=== PATIENT | male | born 1960 | race Caucasian/White ===

== ENCOUNTER 2017-09-20 23:11 | Inpatient (IN) | payer SELFPAY ==
[~2017-09-20] VITALS: Ht 170.2 cm; Wt 99.8 kg
[2017-09-20 23:19] VITALS: BP 119/114
--- NOTE | 2017-09-20 23:24 | NUR ---
PT TAKEN TO BED 10
--- NOTE | 2017-09-20 23:25 | NUR ---
57/M CAME IN W C/O HEMATURIA AND PAINFUKL URINATION X THIS MORNING. PT REPORT HE HAS HX OF UROGENTAL PROBLEM, STATES " THIS HAPPENED 3 YEARS AGO BUT IT WASN'T THIS BAD". 04/03 SUPRAPUBIC TENDERNESS, ABD DISTENDED AND SOFT. DENIES ANY OTHER PAIN AT THIS TIME PMH: HTN
[2017-09-21] MEDS ORDERED: MORPHINE SULFATE 4 MG/ML SYR IVP ONE (00:05)
[2017-09-21] MEDS ORDERED: NACL 0.9% 1,000 ML IV ONE (00:05)
[2017-09-21 00:27] LABS: APPEARANCE,URINE TURBID (CLEAR); BILIRUBIN,URINE NEGATIVE (NEGATIVE); BLOOD, URINE 3+ (NEGATIVE); COLOR,URINE RED (YELLOW); LEUKOCYTE ESTERASE ,URINE 2+ (NEGATIVE); NITRITE, URINE POSITIVE (NEGATIVE); UGLUCOSE 1+ (NEGATIVE)
--- NOTE | 2017-09-21 00:27 | NUR ---
PT TAKEN TO CT
[2017-09-21 00:29] LABS: BASOPHILS # (AUTO) 0.3 K/uL (0.00-0.22); BASOPHILS % (AUTO) 3.1 % (0.0-2.0); EOSINOPHILS # (AUTO) 0.1 K/uL (0-0.4); EOSINOPHILS % (AUTO) 1.4 % (0.0-4.0); HEMOGLOBIN 16.1 g/dL (12.0-18.0); LYMPHOCYTES # (AUTO) 1.6 K/uL (2.0-11.5); MEAN CORPUSCULAR HEMOGLOBIN 29 pg (27-31); MEAN CORPUSCULAR HGB CONC 32 g/dL (33-37); MEAN CORPUSCULAR VOLUME 90.1 fL (80-94); MONOCYTES # (AUTO) 1.2 K/uL (0.8-1.0); MONOCYTES % (AUTO) 12.1 % (1.7-9.3); NEUTROPHILS # (AUTO) 6.7 K/uL (1.8-7.7); NEUTROPHILS % (AUTO) 67.4 % (42.2-75.2); PLATELET COUNT (AUTO) 263 K/uL (140-450); RED BLOOD CELL COUNT(AUTO) 5.55 MIL/uL (4.20-6.10); RED CELL DISTRIBUTION WIDTH 12.6 % (11.6-13.7); WHITE BLOOD COUNT (AUTO) 9.9 K/uL (4.8-10.8)
--- NOTE | 2017-09-21 00:29 | NUR ---
PT RETURN FROM CT
--- NOTE | 2017-09-21 00:33 | NUR ---
PT TAKEN TO CT VIA MICHAEL
[2017-09-21 00:40] LABS: RBC,URINE TOO NUMEROUS TO COUN /HPF (0-5)
--- NOTE | 2017-09-21 00:40 | NUR ---
PT RETURN FROM CT
[2017-09-21 00:41] LABS: ALBUMIN 3.1 g/dL (3.4-5.0); CARBON DIOXIDE 28.8 mmol/L (21-32); CREATININE 1.2 mg/dL (0.7-1.3); TOTAL BILIRUBIN 0.4 mg/dL (0.0-1.0)
[2017-09-21 00:47] LABS: POTASSIUM 2.8 mmol/L (3.5-5.1)
[2017-09-21] MEDS ORDERED: POTASSIUM CHLORIDE 20% 40 MEQ/15 ML UDC PO ONE (00:50)
--- NOTE | 2017-09-21 01:25 | NUR ---
Patient appears to be resting comfortably in bed. Vital Signs within normal limits. Respirations even and unlabored.
[2017-09-21] MEDS ORDERED: cefTRIAXone 2,000 MG in DEXTROSE 5% 100 ML IV ONE (01:35)
[2017-09-21] MEDS ORDERED: cefTRIAXone 2,000 MG VIAL ONE (01:40)
[2017-09-21] MEDS ORDERED: NACL 0.9% 1,000 ML IV SCH (02:36)
[2017-09-21] MEDS ORDERED: MORPHINE SULFATE 2 MG/ML SYR IVP PRN (02:40)
[2017-09-21] MEDS ORDERED: ACETAMINOPHEN 325 MG TAB PO PRN (02:40)
[2017-09-21] MEDS ORDERED: DOCUSATE SODIUM 100 MG GELCAP PO PRN (02:40)
[2017-09-21] MEDS ORDERED: ONDANSETRON 4 MG/2 ML VIAL IM/IVP PRN (02:40)
[2017-09-21] MEDS ORDERED: HYDROcodone/APAP 7.5/325 MG 1 TAB PO PRN (02:40)
--- NOTE | 2017-09-21 02:50 | NUR ---
Patient will be admitted to care of [facility]. Admited to TELE. Will go to room 106B. Belongings list completed. Report to ULCILA KUNZ. IV SL AND PATENT
[2017-09-21 03:00] LABS: BARBITURATE, URINE NEG. ng/ml (NEG <=200); BENZODIAZEPINE, URINE NEG. ng/mL (NEG <=200); CANNABINOID, URINE NEG. ng/mL (NEG <=50); COCAINE, URINE NEG. ng/mL (NEG <=300); OPIATE, URINE NEG. ng/mL (NEG <=2000); PHENCYCLIDINE SCREEN,URINE NEG. ng/mL (NEG <=25)
--- NOTE | 2017-09-21 03:00 | NUR ---
RECEIVED REPORT FROM BUSINESS DEVELOPMENT DIRECTOR, PT IS A/OX4 ON ROOM AIR. PT HAS 20G IV TO RIGHT HAND. PT WALKS WITH STEADY GAIT. HIS SKIN IS INTACT, BUT THERE IS EDEMA AND ERYTHEMA TO LOWER EXTREMITIES. UPDATED BOARD. DISCUSSED PLAN OF CARE WITH PT, PT VERBALIZED UNDERSTANDING. VITAL SIGNS WITHIN NORMAL LIMITS. PT IN STABLE CONDITION, NO SIGNS OF DISTRESS NOTED. BED IN LOWEST POSITION, CALL LIGHT WITHIN REACH. WILL CONTINUE TO MONITOR.
[2017-09-21 03:10] LABS: CHOL/HDL RATIO 4.1 (1-4.5); FREE T4 (FREE THYROXINE) 1.07 ng/dL (0.76-1.46); THYROID STIMULATING HORMONE 3.56 uIU/mL (0.34-3.74)
[2017-09-21 03:14] LABS: PROTHROMBIN TIME 10.7 secs (10.8-13.4)
[2017-09-21 03:45] VITALS: BP 139/85
--- NOTE | 2017-09-21 04:00 | NUR ---
RN PRESENT IN ROOM WHILE DR RN PRESENT IN ROOM FOR DR PHYSICAL EXAM.
[2017-09-21] MEDS ORDERED: PIPERACILLIN/TAZOBACTAM 3.375 GM VIAL IV ONE (05:59)
[2017-09-21] MEDS ORDERED: PIPERACILLIN/TAZOBACTAM 3.375 GM in DEXTROSE 5% 50 ML IV SCH (06:00)
[2017-09-21 06:58] LABS: ANION GAP 15.3 (8-16); CARBON DIOXIDE 26.1 mmol/L (21-32); CREATININE 1.1 mg/dL (0.7-1.3); POTASSIUM 3.4 mmol/L (3.5-5.1)
[2017-09-21 07:05] LABS: MAGNESIUM 1.9 mg/dL (1.8-2.4); PHOSPHORUS 3.8 mg/dL (2.5-4.9)
[2017-09-21 07:16] LABS: BASOPHILS # (AUTO) 0.2 K/uL (0.00-0.22); BASOPHILS % (AUTO) 1.9 % (0.0-2.0); EOSINOPHILS # (AUTO) 0.1 K/uL (0-0.4); HEMATOCRIT 43.8 % (36-52); HEMOGLOBIN 14.7 g/dL (12.0-18.0); LYMPHOCYTES # (AUTO) 1.2 K/uL (2.0-11.5); LYMPHOCYTES % (AUTO) 11.1 % (20.5-51.1); MEAN CORPUSCULAR HEMOGLOBIN 30 pg (27-31); MEAN CORPUSCULAR HGB CONC 34 g/dL (33-37); MEAN CORPUSCULAR VOLUME 89.4 fL (80-94); MONOCYTES # (AUTO) 0.9 K/uL (0.8-1.0); MONOCYTES % (AUTO) 8.1 % (1.7-9.3); NEUTROPHILS # (AUTO) 8.6 K/uL (1.8-7.7); NEUTROPHILS % (AUTO) 77.9 % (42.2-75.2); PLATELET COUNT (AUTO) 258 K/uL (140-450); RED BLOOD CELL COUNT(AUTO) 4.89 MIL/uL (4.20-6.10); RED CELL DISTRIBUTION WIDTH 12.5 % (11.6-13.7)
--- NOTE | 2017-09-21 07:25 | NUR ---
ENDORSED PT TO DAY SHIFT RN FOR CONTINUITY OF CARE, PT IN STABLE CONDITION.
--- NOTE | 2017-09-21 07:26 | NUR ---
RECEIVED REPORT FROM THE MANUSCRIPT READER NURSE AT BEDSIDE FOR CONTINUITY OF CARE. PT IS SLEEPING SOUNDLY. IV ON R HAND 20G, NS AT 150ML INFUSING. SKIN INTACT, SOME HEALING SCABS ON LLE. LBM ON 09/19. WILL CONTINUE TO MONITOR PT.
[2017-09-21 08:00] VITALS: BP 122/77
[2017-09-21] MEDS ORDERED: POTASSIUM CHLORIDE 40 MEQ, LIDOCAINE 1% 25 MG in NACL 0.9% 250 ML IV SCH (08:00)
[2017-09-21] MEDS ORDERED: CALCIUM CARB/VIT-D 500 MG/200 IU 1 TAB PO SCH (08:33)
[2017-09-21] MEDS: PHENAZOPYRIDINE 100 MG TAB PO SCH ×3 (08:51→17:25)
[2017-09-21] MEDS: NACL 0.45% 1,000 ML IV SCH ×4 (08:51→23:57)
[2017-09-21] MEDS: LACTOBACILLUS RHAMNOSUS GG 1 EACH CAP PO SCH (08:52)
--- NOTE | 2017-09-21 08:55 | NUR ---
ADMINISTERED MORNING MEDS. ASKED FOR PAIN MEDS. PER EMAR, MORPHINE D/C'D. REQUESTED MD TO ADD A PAIN MED FOR PT. WILL AWAIT FOR PAIN MED ORDERS.
[2017-09-21] MEDS: HYDROcodone/APAP 7.5/325 MG 1 TAB PO PRN ×2 (10:16→17:26)
--- NOTE | 2017-09-21 10:16 | NUR ---
ADMINISTERED NORCO. PT TOLERATED WELL. WILL CONTINUE TO MONITOR PT.
--- NOTE | 2017-09-21 11:18 | NUR ---
PT SLEEPING SOUNDLY. NO SIGNS OF DISTRESS. WILL CONTINUE TO MONITOR PT.
[2017-09-21] MEDS: PIPER/TAZO 3.375GM/D5W PREMIX 50 ML IV SCH ×3 (12:19→23:57)
--- NOTE | 2017-09-21 12:19 | NUR ---
PATIENT HAS BEEN SCREENED AND CATEGORIZED LOW NUTRITION RISK. PATIENT WILL BE SEEN WITHIN 7 DAYS OF ADMISSION. 09/27/[address]
--- NOTE | 2017-09-21 14:47 | NUR ---
PT SLEEPING. NO SIGNS OF DISTRESS. WILL CONTINUE TO MONITOR PT.
[2017-09-21 16:00] VITALS: BP 141/81
--- NOTE | 2017-09-21 16:13 | NUR ---
CHART REVIEW DONE PER [facility].
--- NOTE | 2017-09-21 17:30 | NUR ---
ADMINISTERED PAIN MED AND SCHEDULED MEDS. PT TOLERATED WELL. WILL CONTINUE TO MONITOR PT.
--- NOTE | 2017-09-21 18:47 | NUR ---
PT SLEEPING AFTER EATING ALL HER DINNER. 100%. PER PT, PT URINATED INTO THE URINAL. COLLISION MECHANIC FLUSHED IT WITHOUT ME SEEING IT. PER PT, URINE IS STILL PINK. ASKED PT TO URINATE INTO THE URINAL ONCE MORE SO RN CAN ASSESS THE COLOR. PT VERBALIZED UNDERSTANDING.
--- NOTE | 2017-09-21 19:20 | NUR ---
ENDORSED PT TO THE DOCUMENT PROCESSOR NURSE AT BEDSIDE FOR CONTINUITY OF CARE. PT IS IN STABLE CONDITION.
--- NOTE | 2017-09-21 19:21 | NUR ---
RECEIVED BEDSIDE REPORT FROM DAY SHIFT NURSE SORIN RN, PT STABLE, NO DISTRESS NOTED, IV TO R HAND 20G RUNNING NS 150ML/HR, INFUSING WELL, PATENT, PT ON ROOM AIR NO SOB, INITIAL ASSESSMENT DONE, ALL SAFETY PRECAUTION MET, WILL CONTINUE TO MONITOR.
--- NOTE | 2017-09-21 21:13 | NUR ---
PT AMBULATED TO THE HALLWAY AND BACK TO ROOM, WENT TO RESTROOM AND URINATED, PT URINE BROWN COLORED, SIMILAR TO BETADINE IN COLOR, PT THEN AMBULATED BACK TO BED, NO DISTRESS NOTED, C/O PAIN ON THE ABD AND WHEN URINATED, DR. TOVAR NOTIFIED, DR. GILLETTE WILL PUT IN ORDERS, WILL CONTINUE WITH ORDERS AND MEDICATE PT WHEN AVAILABLE.
[2017-09-21] MEDS ORDERED: KETOROLAC 15 MG/ML VIAL IVP PRN (21:15)
--- NOTE | 2017-09-21 21:49 | NUR ---
PT C/O PAIN ON THE LOWER ABD AND WHEN URINATING /10, PAIN MEDICATION GIVEN, PT TOLERATED WELL, NO DISTRESS NOTED, CALL LIGHT WITHIN REACH, WILL CONTINUE TO MONITOR.
--- NOTE | 2017-09-21 23:57 | NUR ---
DUE MEDICATION GIVEN, PT TOLERATED WELL, PT WENT BACK TO SLEEP, NO DISTRESS NOTED, CALL LIGHT WITHIN REACH, WILL CONTINUE TO MONITOR.
[2017-09-22] VITALS: BP 138/82
--- NOTE | 2017-09-22 02:10 | NUR ---
PT SLEEPING, NO DISTRESS NOTED, CALL LIGHT WITHIN REACH, WILL CONTINUE TO MONITOR.
--- NOTE | 2017-09-22 04:30 | NUR ---
CHECKED ON PT, PT SLEEPING, NO DISTRESS NOTED, CALL LIGHT WITHIN REACH, WILL CONTINUE TO MONITOR.
[2017-09-22] MEDS: PIPER/TAZO 3.375GM/D5W PREMIX 50 ML IV SCH ×3 (05:39→17:06)
--- NOTE | 2017-09-22 05:39 | NUR ---
DUE MEDICATION GIVEN, PT TOLERATED WELL, NO DISTRESS NOTED, CALL LIGHT WITHIN REACH, WILL CONTINUE TO MONITOR.
[2017-09-22 06:22] LABS: T4 (THYROXINE) 8.5 ug/dL (4.5-12.0)
--- NOTE | 2017-09-22 07:07 | NUR ---
GAVE BEDSIDE REPORT TO DAY SHIFT NURSE VICTOR M LARA, PT STABLE, NO DISTRESS NOTED, CALL LIGHT WITHIN REACH.
--- NOTE | 2017-09-22 07:07 | NUR ---
ASSUMED CONTINUITY OF CARE. NO SIGNS AND SYMPTOMS OF ACUTE DISTRESS NOTICED. INITIAL ASSESSMENT DONE. KEEP COMFORTABLE ON BED. EXPLAINED DIAGNOSIS, PLAN OF CARE, PAIN MANAGEMENT TEACHING, USE OF CALL LIGHT/BED/TV/BATHROOM. VERBALIZED UNDERSTANDING. CALL LIGHT WITHIN REACH.
[2017-09-22 07:10] LABS: BASOPHILS # (AUTO) 0.2 K/uL (0.00-0.22); BASOPHILS % (AUTO) 2.5 % (0.0-2.0); EOSINOPHILS # (AUTO) 0.5 K/uL (0-0.4); EOSINOPHILS % (AUTO) 5.3 % (0.0-4.0); HEMOGLOBIN 14.2 g/dL (12.0-18.0); LYMPHOCYTES # (AUTO) 1.8 K/uL (2.0-11.5); LYMPHOCYTES % (AUTO) 19.5 % (20.5-51.1); MEAN CORPUSCULAR HEMOGLOBIN 30 pg (27-31); MEAN CORPUSCULAR HGB CONC 33 g/dL (33-37); MEAN CORPUSCULAR VOLUME 90.3 fL (80-94); MONOCYTES # (AUTO) 1.1 K/uL (0.8-1.0); MONOCYTES % (AUTO) 12.3 % (1.7-9.3); NEUTROPHILS # (AUTO) 5.6 K/uL (1.8-7.7); NEUTROPHILS % (AUTO) 60.4 % (42.2-75.2); PLATELET COUNT (AUTO) 241 K/uL (140-450); RED BLOOD CELL COUNT(AUTO) 4.76 MIL/uL (4.20-6.10); RED CELL DISTRIBUTION WIDTH 12.8 % (11.6-13.7); WHITE BLOOD COUNT (AUTO) 9.3 K/uL (4.8-10.8)
[2017-09-22 07:24] LABS: ANION GAP 11.7 (8-16); CARBON DIOXIDE 26.4 mmol/L (21-32); CREATININE 1.2 mg/dL (0.7-1.3); POTASSIUM 4.1 mmol/L (3.5-5.1)
[2017-09-22 08:00] VITALS: BP 155/98
[2017-09-22] MEDS: NACL 0.45% 1,000 ML IV SCH ×2 (08:39→15:56)
[2017-09-22] MEDS: PHENAZOPYRIDINE 100 MG TAB PO SCH ×3 (08:40→17:35)
[2017-09-22] MEDS: CALCIUM CARB/VIT-D 500 MG/200 IU 1 TAB PO SCH (08:40)
[2017-09-22] MEDS: LACTOBACILLUS RHAMNOSUS GG 1 EACH CAP PO SCH (08:40)
[2017-09-22] MEDS: HYDROcodone/APAP 7.5/325 MG 1 TAB PO PRN (08:41)
--- NOTE | 2017-09-22 09:47 | NUR ---
Patient's Plan of Care was discussed and reviewed with RECEIVING COORDINATOR: VICTORM SCHMITT
[2017-09-22 12:00] VITALS: BP 156/90
--- NOTE | 2017-09-22 12:25 | NUR ---
INFORMED DR. WASHINGTON ABOUT PT. VS AT 0800 AND VS AT 1200. ALSO INFORMED CHARGE NURSE MERON NIX.
[2017-09-22] MEDS ORDERED: LISINOPRIL 5 MG TAB PO SCH (12:57)
--- NOTE | 2017-09-22 13:30 | NUR ---
DR. PHILLIP CAME, REVIEWED PT. CHART AND SEEN PT..
--- NOTE | 2017-09-22 14:10 | NUR ---
DR. GAINES CAME, REVIEWED PT. CHART AND SEEN PT..
[2017-09-22 16:30] VITALS: BP 185/93
--- NOTE | 2017-09-22 16:35 | NUR ---
INFORMED DR. ARREDONDO ABOUT PT. VS AT 1630; TEMP 98.5, BP 185/93, HR 76, RESP 18, O2 SAT 94% ON ROOM AIR. C/O SUPRAPUBIC PAIN 08/04. PER. DR. ARREDONDO, HE WILL PUT ORDER. INFORMED CHARGE NURSE MERON NIX.
[2017-09-22] MEDS ORDERED: LISINOPRIL 20 MG TAB PO SCH (16:45)
[2017-09-22 18:50] VITALS: BP 160/108
--- NOTE | 2017-09-22 18:55 | NUR ---
INFORMED DR. GARCIA ABOUT PT. LATEST VS AT 1850; TEMP 98.4, BP 160/108, RESP 18, HR 80, O2 SAT 94% ON ROOM AIR. NO C/O PAIN. NO ORDER RECEIVED.
--- NOTE | 2017-09-22 19:04 | NUR ---
BEDSIDE REPORT GIVEN TO VENU ZHOU -ZE. IVF INFUSING WELL. ALSO ENDORSED ABOUT PT. VS THE WHOLE SHIFT ESPECIALLY VS AT 1850.
--- NOTE | 2017-09-22 19:05 | NUR ---
RECEIVED REPORT FROM ARAVIND. PT IN BED SLEEPING. IV RIGHT HAND #20G WITH NS @ 150ML/HR. NO S/S OF RESPIRATORY DISTRESS OR DISCOMFORT AT THIS TIME. DISCUSSED PLAN OF CARE WITH PT. BED IN LOWEST POSITION. CALL LIGHT WITHIN REACH. UPDATED WHITEBOARD. WILL CONTINUE TO MONITOR.
--- NOTE | 2017-09-22 21:05 | NUR ---
PT IV MACHINE NOT PLUGGED IN AND BEEPING WITH LOW BATTERY. PLUGGED IN IV MACHINE TO CHARGE. ONCE THE BEEPING STOPPED PT WAS ABLE TO GO BACK TO SLEEP. BED IN LOWEST POSITION. CALL LIGHT WITHIN REACH. WILL CONTINUE TO MONITOR.
--- NOTE | 2017-09-22 23:08 | NUR ---
PT SLEEPING AT THIS TIME. WILL CONTINUE TO MONITOR.
[2017-09-23] VITALS: BP 176/109
--- NOTE | 2017-09-23 00:05 | NUR ---
PT TOLERATED VITAL SIGNS WELL. BP STILL HIGH 176/109. LISINOPRIL WAS ADMINISTERED DURING DAY SHIFT AND WAS TOLD THAT STATED, "LIPITOR TAKES 24 HOURS TO WORK." WILL CONTINUE TO MONITOR.
[2017-09-23] MEDS: PIPER/TAZO 3.375GM/D5W PREMIX 50 ML IV SCH ×3 (00:58→11:03)
--- NOTE | 2017-09-23 02:11 | NUR ---
PT CONTINUES TO SLEEP IN BED. WILL CONTINUE TO MONITOR.
--- NOTE | 2017-09-23 03:25 | NUR ---
PT CONTINUES TO SLEEP AT THIS TIME. WILL CONTINUE TO MONITOR.
--- NOTE | 2017-09-23 04:50 | NUR ---
PT CONTINUES TO SLEEP. WILL CONTINUE TO MONITOR.
--- NOTE | 2017-09-23 06:39 | NUR ---
PT CONTINUES TO SLEEP. SCHEDULED MEDICATION GIVEN. WILL CONTINUE TO MONITOR.
--- NOTE | 2017-09-23 07:00 | NUR ---
ENDORSED PT CARE TO DAY SHIFT NURSE HERI. PT STABLE AT THIS TIME.
--- NOTE | 2017-09-23 07:01 | NUR ---
ASSUMED CONTINUITY OF CARE. NO SIGNS AND SYMPTOMS OF ACUTE DISTRESS NOTED. INITIAL ASSESSMENT DONE. EXPLAINED DIAGNOSIS, PLAN OF CARE, PAIN MANAGEMENT TEACHING, USE OF CALL LIGHT/BED/TV/BATHROOM. VERBALIZED UNDERSTANDING. CALL LIGHT WITHIN REACH.
[2017-09-23 07:45] LABS: BASOPHILS # (AUTO) 0.2 K/uL (0.00-0.22); BASOPHILS % (AUTO) 2.2 % (0.0-2.0); EOSINOPHILS # (AUTO) 0.5 K/uL (0-0.4); EOSINOPHILS % (AUTO) 5.1 % (0.0-4.0); HEMATOCRIT 47.5 % (36-52); HEMOGLOBIN 15.6 g/dL (12.0-18.0); LYMPHOCYTES # (AUTO) 1.7 K/uL (2.0-11.5); LYMPHOCYTES % (AUTO) 16.1 % (20.5-51.1); MEAN CORPUSCULAR HEMOGLOBIN 30 pg (27-31); MEAN CORPUSCULAR HGB CONC 33 g/dL (33-37); MEAN CORPUSCULAR VOLUME 90.2 fL (80-94); MONOCYTES % (AUTO) 9.5 % (1.7-9.3); NEUTROPHILS # (AUTO) 7.3 K/uL (1.8-7.7); NEUTROPHILS % (AUTO) 67.1 % (42.2-75.2); PLATELET COUNT (AUTO) 299 K/uL (140-450); RED BLOOD CELL COUNT(AUTO) 5.27 MIL/uL (4.20-6.10); RED CELL DISTRIBUTION WIDTH 12.5 % (11.6-13.7); WHITE BLOOD COUNT (AUTO) 10.7 K/uL (4.8-10.8)
[2017-09-23 07:48] LABS: ANION GAP 12.7 (8-16); CARBON DIOXIDE 27.5 mmol/L (21-32); CREATININE 1.2 mg/dL (0.7-1.3); POTASSIUM 4.2 mmol/L (3.5-5.1)
[2017-09-23 08:00] VITALS: BP 163/105
--- NOTE | 2017-09-23 08:00 | NUR ---
Patient's Plan of Care was discussed and reviewed with ACCOUNTING INTERN: VICTOR M SCHMITT
[2017-09-23] MEDS: LACTOBACILLUS RHAMNOSUS GG 1 EACH CAP PO SCH (08:29)
[2017-09-23] MEDS: CALCIUM CARB/VIT-D 500 MG/200 IU 1 TAB PO SCH (08:29)
[2017-09-23] MEDS ORDERED: TAMSULOSIN 0.4 MG CAP PO SCH (08:30)
[2017-09-23] MEDS: PHENAZOPYRIDINE 100 MG TAB PO SCH ×2 (08:49→12:30)
[2017-09-23] MEDS ORDERED: LISINOPRIL 20 MG TAB PO SCH ×2 (09:00)
[2017-09-23] MEDS ORDERED: PHEN-1901 PO (09:25)
[2017-09-23] MEDS ORDERED: LEVO750T2 PO (09:26)
[2017-09-23] MEDS ORDERED: LACT1.4C PO (09:26)
[2017-09-23] MEDS ORDERED: LISI-420 PO (10:56)
--- NOTE | 2017-09-23 11:15 | NUR ---
WENT TO BATHROOM WITHOUT ASSISTANCE. TOLERATED WELL. VOIDED WITH 400 ML. CLEAR YELLOW URINE OUTPUT. NO C/O PAIN.
[2017-09-23 12:00] VITALS: BP 157/98
--- NOTE | 2017-09-23 12:00 | NUR ---
INFORMED DR. WASHINGTON ABOUT PT. LATEST VS AT 1200 TEMP 98.6, BP 157/98, HR 88, RESP 16, O2 SAT 93% ON ROOM AIR. NO C/O PAIN. PER DR. WASHINGTON, HE WILL PUT ORDERS FOR BP. INFORMED CHARGE NURSE MERON NIX.
[2017-09-23] MEDS ORDERED: amLODIPine 5 MG TAB PO SCH (12:30)
[2017-09-23] MEDS ORDERED: TAMS0.4C96 PO (13:35)
[2017-09-23 13:40] VITALS: BP 162/104
[2017-09-23] MEDS: NACL 0.45% 1,000 ML IV SCH (13:40)
[2017-09-23] MEDS ORDERED: hydrALAZINE 20 MG/ML VIAL IVP PRN (13:50)
[2017-09-23] MEDS ORDERED: AMLO-27 PO (13:56)
[2017-09-23 15:15] VITALS: BP 146/80
--- NOTE | 2017-09-23 15:20 | NUR ---
INFORMED DR. WASHINGTON ABOUT PT. VS AT 1515; TEMP 98.9, BP 146, 80, RESP 18, HR 98, O2 SAT 95% ON ROOM AIR. NO C/O PAIN. PER DR. WASHINGTON, PT. CAN BE D/C HOME NOW. INFORMED DR. WASHINGTON THAT PT. JUST WAITING FOR A RIDE HOME FROM A FRIEND. INFORMED CHARGE NURSE MERON NIX.
--- NOTE | 2017-09-23 16:20 | NUR ---
REFUSED TO USED WHEELCHAIR FOR D/C. PT. AMBULATORY. D/C HOME ACCOMPANIED BY PT. FRIEND. AWAKE, ALERT, AND ORIENTED X4. SPEECH CLEAR. NO C/O PAIN. IN STABLE CONDITION. INFORMED CHARGE NURSE MERON NIX.
== END 2017-09-23 16:20 | disposition home or self-care (01) | DRG 698 ==
LOC: MED 23:11 → MTU 09-21 02:40
PROVIDERS: ADMIT Family Medicine Sports Medicine; ATTEND Family Medicine Sports Medicine
DX: N32.0 Bladder-neck obstruction (principal); N17.0 Acute kidney failure with tubular necrosis; E44.0 Moderate protein-calorie malnutrition; E87.6 Hypokalemia; Z91.19 Patient's noncompliance with other medical treatment and regimen; N30.91 Cystitis, unspecified with hematuria; I10 Essential (primary) hypertension; F17.210 Nicotine dependence, cigarettes, uncomplicated; N40.1 Benign prostatic hyperplasia with lower urinary tract symptoms; R91.1 Solitary pulmonary nodule; J84.10 Pulmonary fibrosis, unspecified; R74.0 Nonspecific elevation of levels of transaminase and lactic acid dehydrogenase [LDH]; F19.10 Other psychoactive substance abuse, uncomplicated; F15.10 Other stimulant abuse, uncomplicated; E66.9 Obesity, unspecified; Z68.34 Body mass index [BMI] 34.0-34.9, adult
CPT/HCPCS: 36415; 71045; 76705; 76770; 80048; 80053; 80305; 81001; 82150; 83036; 83690; 83735; 83880; 84100; 84436; 84439; 84443; 84479; 84484; 85025; 85610; 85730; 87081; 87086; 93005; 96361; 96365; 96375; 99285; J0360; J0696; J1885; J2001; J2270; J2543; J3480; J7030; J7060; Q0092

== ENCOUNTER 2018-08-16 19:09 | Emergency (ER) | payer OTHER ==
[~2018-08-16] VITALS: Ht 170.2 cm; Wt 115.2 kg
[~2018-08-16 19:09] MED LIST: AMLO10TA4 PO; LACT1.4C PO; LEVO750T2 PO; LISI-420 PO; PHEN-1901 PO; TAMS0.4C96 PO
[2018-08-16 19:15] VITALS: BP 169/97
--- NOTE | 2018-08-16 19:24 | NUR ---
Patient ambulated to bed 7. RN evaluating patient at bedside.
--- NOTE | 2018-08-16 19:37 | NUR ---
X-Ray at bedside.
--- NOTE | 2018-08-16 19:47 | NUR ---
Pt presents to ED for evaluation of SOB x 1 week. Pt states he was sent from his PMD for dyspnea on exertion and bilateral leg edema. Pt states he has been SOB, cough and congested x1 week with swelling to both lower extremities. Pt denies any chest pain. Denies hx of CHF. Denies taking diuretics at home. AOX4, speaking in full sentences. 96 % on room air. Respirations even and unlabored. Family at bedside. NAD noted. VSS. Pt waiting for ERMD evaluation.
--- NOTE | 2018-08-16 20:10 | NUR ---
PT AMBULATED TO RESTROOM WITHOUT INCIDENCE
--- NOTE | 2018-08-16 20:21 | NUR ---
Lab at bedside for blood draw.
[2018-08-16 20:33] LABS: BASOPHILS # (AUTO) 0.1 K/uL (0.00-0.22); BASOPHILS % (AUTO) 0.7 % (0.0-2.0); EOSINOPHILS # (AUTO) 0.5 K/uL (0-0.4); EOSINOPHILS % (AUTO) 5.8 % (0.0-4.0); HEMATOCRIT 48.1 % (36-52); HEMOGLOBIN 16.1 g/dL (12.0-18.0); LYMPHOCYTES # (AUTO) 1.3 K/uL (2.0-11.5); LYMPHOCYTES % (AUTO) 14.2 % (20.5-51.1); MEAN CORPUSCULAR HEMOGLOBIN 30 pg (27-31); MEAN CORPUSCULAR HGB CONC 33 g/dL (33-37); MEAN CORPUSCULAR VOLUME 88.4 fL (80-94); MONOCYTES # (AUTO) 1.1 K/uL (0.8-1.0); MONOCYTES % (AUTO) 12.1 % (1.7-9.3); NEUTROPHILS % (AUTO) 67.2 % (42.2-75.2); PLATELET COUNT (AUTO) 265 K/uL (140-450); RED BLOOD CELL COUNT(AUTO) 5.44 MIL/uL (4.20-6.10); RED CELL DISTRIBUTION WIDTH 14.8 % (11.6-13.7); WHITE BLOOD COUNT (AUTO) 8.9 K/uL (4.8-10.8)
[2018-08-16 20:51] LABS: ANION GAP 11.3 (8-16); CARBON DIOXIDE 26.2 mmol/L (21-32); CREATININE 1.1 mg/dL (0.7-1.3); POTASSIUM 3.5 mmol/L (3.5-5.1)
[2018-08-16 20:57] LABS: ALBUMIN 3.3 g/dL (3.4-5.0); TOTAL BILIRUBIN 0.4 mg/dL (0.0-1.0)
--- NOTE | 2018-08-16 21:32 | NUR ---
Dr. Modi evaluating patient at bedside.
[2018-08-16 21:46] VITALS: BP 141/89
--- NOTE | 2018-08-16 21:46 | NUR ---
Patient discharged with v/s stable. Written and verbal after care instructions given and explained. Patient alert, oriented and verbalized understanding of instructions. Ambulatory with steady gait. All questions addressed prior to discharge. ID band removed. Patient advised to follow up with PMD. Rx of Prednisone 20mg and Lasix 20mg given. Copy of labs and x-ray report given to patient for follow up. Patient educated on indication of medication including possible reaction and side effects. Opportunity to ask questions provided and answered.
== END 2018-08-16 21:50 | disposition home or self-care (01) ==
LOC: MED 19:09
DX: I11.0 Hypertensive heart disease with heart failure (principal); I50.9 Heart failure, unspecified; F17.200 Nicotine dependence, unspecified, uncomplicated; Z79.2 Long term (current) use of antibiotics; Z79.899 Other long term (current) drug therapy
CPT/HCPCS: 36415; 71045; 80053; 83880; 84484; 85025; 99284; Q0092